=== PATIENT | female | born 1995 | race Caucasian/White ===

== ENCOUNTER 2018-08-21 23:11 | Observation (INO) | payer OTHER ==
[~2018-08-21] VITALS: Ht 167.6 cm; Wt 63.6 kg
[2018-08-21] MEDS ORDERED: EPINEPHrine 1 MG INJ IM STA (23:24)
[2018-08-21] MEDS ORDERED: METHYLPREDNISOLONE 125 MG INJ IV STA (23:24)
[2018-08-21] MEDS ORDERED: DIPHENHYDRAMINE 50 MG INJ IV STA (23:24)
[2018-08-21] MEDS ORDERED: FAMOTIDINE 20 MG INJ IV STA (23:24)
[2018-08-21] MEDS ORDERED: ALBUTEROL 0.083% (NEB) 2.5 MG/3 ML AMP INH STA (23:24)
[2018-08-22] MEDS ORDERED: RACEPINEPHRINE 2.25%(NEB) 0.5 ML AMP HHN ONE (02:00)
[2018-08-22] MEDS ORDERED: SOD CHLORIDE 0.9% 1,000 ML IV SCH (02:42)
--- NOTE | 2018-08-22 02:58 | ERD ---
ER Documentation Chief Complaint Chief Complaint ALLERGIC REACTION TO CASHEWS; USED EPIPEN 1 HR AGO. 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 The patient reportedly ate a wrap yesterday that had a cashew-based sauce that she was not aware of until after eating it. The patient broke out in hives and reports difficulty breathing and then sensation that her throat was going to close. She went to an emergency department yesterday where she received epinephrine, Benadryl, Pepcid and steroids. She was discharged with prescriptions for an EpiPen, Benadryl, Pepcid and prednisone. The patient reports compliance with her prescriptions. However, this evening the patient's symptoms started to recur. The patient endorses a sensation that her throat is closing and difficulty breathing. She reports dyspnea as well. The patient did not break out in hives this evening. The patient denies feeling sick recently. The patient denies fever or chills. The patient has had no headache or vision changes. The patient does not endorse neck or back pain. The patient denies lightheadedness or dizziness. The patient has had no chest pain. The patient denies nausea or vomiting. The patient denies abdominal pain. The patient denies changes to bowel movements or urination. The patient has had no focal deficits. The patient has had no w eakness or numbness or tingling to the face or extremities. ROS All systems reviewed and are negative except as per history of present illness. Allergies Allergies: Coded Allergies: latex (Verified Allergy, Unknown, 08/21/18) morphine (Verified Allergy, Unknown, 08/21/18) Uncoded Allergies: CASHEWS (Allergy, Intermediate, 08/22/18) PMhx/Soc Medical and Surgical Hx: pt denies Surgical Hx History of Surgery: No Anesthesia Reaction: No Hx Neurological Disorder: No Hx Respiratory Disorders: No Hx Cardiac Disorders: No Hx Psychiatric Problems: No Hx Miscellaneous Medical Probl: Yes (Interstitial cystitis) Hx Alcohol Use: No Hx Substance Use: No Hx Tobacco Use: No Smoking Status: Never smoker FmHx Family History: No diabetes Physical Exam Vitals Vital Signs Date Temp Pulse Resp B/P (MAP) Pulse Ox O2 O2 Flow FiO2 Time Delivery Rate 08/22/18 94 32 97 Nasal 2.0 02:03 Cannula 2/23/19 Simple 10.0 23:52 Mask 08/21/18 90 26 98 21 23:42 08/21/18 107 19 129/60 100 Room Air 23:30 (83) 08/21/18 98.4 88 18 149/70 100 23:13 (96) Physical Exam Const: No apparent distress, well-developed, well-nourished Head: Normocephalic, Atraumatic Eyes: Normal Conjunctiva. Extraocular movements intact. Pupils equal, round and reactive to light ENT: Normal External Ears, Nose and Mouth. Neck: Full range of motion. No meningismus. Resp: Clear to auscultation bilaterally, No wheezes, rales or rhonchi Cardio: Regular rate and rhythm. No murmurs, rubs or gallops Abd: Soft, non tender, non distended. Normal bowel sounds Skin: No petechiae or rashes Back: No midline tenderness. No CVA tenderness Ext: No cyanosis, or edema Neur: Awake and alert, oriented 4. Cranial nerves intact. No facial droop. Normal strength, sensation and coordination. Psych: Normal Mood and Affect Result Diagram: 08/22/18 0200 08/22/18 0200 Results 24 hrs Laboratory Tests Test 08/22/18 02:00 White Blood Count 10.3 10^3/ul Red Blood Count 3.80 10^6/ul Hemoglobin 11.9 g/dl Hematocrit 35.2 % Mean Corpuscular Volume 92.6 fl Mean Corpuscular Hemoglobin 31.3 pg Mean Corpuscular Hemoglobin Concent 33.8 g/dl Red Cell Distribution Width 12.5 % Platelet Count 252 10^3/UL Mean Platelet Volume 10.0 fl Immature Granulocytes % 0.500 % Neutrophils % 94.4 % Lymphocytes % 4.0 % Monocytes % 1.0 % Eosinophils % 0.0 % Basophils % 0.1 % Nucleated Red Blood Cells % 0.0 /100WBC Immature Granulocytes # 0.050 10^3/ul Neutrophils # 9.8 10^3/ul Lymphocytes # 0.4 10^3/ul Monocytes # 0.1 10^3/ul Eosinophils # 0.0 10^3/ul Basophils # 0.0 10^3/ul Nucleated Red Blood Cells # 0.0 10^3/ul Sodium Level 144 mmol/L Potassium Level 3.5 mmol/L Chloride Level 113 mmol/L Carbon Dioxide Level 17 mmol/L Anion Gap 14 Blood Urea Nitrogen 8 mg/dl Creatinine 0.61 mg/dl Est Glomerular Filtrat Rate mL/min > 60 mL/min Glucose Level 206 mg/dl Calcium Level 9.1 mg/dl Current Medications Medications Dose Sig/Trip Start Time Status Last (Trade) Ordered Route PRN Stop Time Admin Dose Reason Admin 50 mg ONCE STAT 08/21/18 DC 08/21/18 Diphenhydrami IV 23:24 23:40 ne HCl 08/21/18 23:26 (Benadryl) Epinephrine 0.3 mg ONCE STAT 08/21/18 DC 08/21/18 IM 23:24 23:29 (EPINEPHrine) 08/21/18 23:26 Famotidine 20 mg ONCE STAT 08/21/18 DC 08/21/18 (Pepcid Iv) IV 23:24 23:40 08/21/18 23:26 125 mg ONCE STAT 08/21/18 DC 08/21/18 Methylprednis IV 23:24 23:40 olone Sodium 08/21/18 23:26 Succinate (Solu-Medrol) Albuterol 5 mg ONCE STAT 08/21/18 DC 08/21/18 (Proventil INH 23:24 23:42 0.083% (Neb)) 08/21/18 23:26 Epinephrine 0.25 ml ONCE ONCE 08/22/18 DC 08/22/18 HHN 02:00 02:03 (Racepinephri 08/22/18 02:01 ne 2.25% (Neb)) Procedures/MDM MDM The patient's presentation warrants further investigation. Previous medical records, if available, were reviewed. LABS The patient's laboratory testing was obtained and reviewed. No emergent treatment was required unless described below. CBC: No E/o of systemic infection or thrombocytopenia. Mild normocytic anemia, not emergent. BMP: No E/o severe alkalosis or renal failure or diabetic ketoacidosis. There is a mild anion gap metabolic acidosis present, potentially related to the albuterol use. EKG EKG read by me: Rate/Rhythm: Regular rate and rhythm at a rate of 92 bpm Intervals: Normal [place]: Normal Impression: No evidence of acute ischemia or arrhythmia IMAGING Imaging and Radiology interpretation reviewed. CXR FINDINGS: The cardiomediastinal silhouette is normal. The aorta is normal. No focal consolidation, pleural effusion or pneumothorax is seen. The osseous structures are intact. IMPRESSION: No radiographic evidence of acute cardiopulmonary disease. Electronically viewed and signed by Mehreen Mccoy Physician on 08/22/2018 02:46 TREATMENT/DISPOSITION The patient presents with concerns of an allergic reaction. The patient's symptoms reportedly recurred despite treatment for her allergic reaction yesterday. The patient was treated again today, but the patient reports persistent shortness of breath. The patient's workup is unremarkable. The patient's physical exam is reassuring. That said, since the patient's symptoms have continued, I do feel that the patient would benefit from being observed in the hospital to make sure that the patient's allergic symptoms do not become emergent again. The patient was treated with epinephrine, Benadryl, Pepcid, Solu-Medrol, albuterol and racemic epinephrine. Other etiologies were considered. The patient's chest xray does not reveal pneumonia or pneumothorax or pleural effusions or pulmonary edema. She does not have a widened mediastinum and does not have signs or symptoms concerning for thoracic aortic aneurysm or dissection. The patient does not have pneumome diastinum or signs concerning for esophageal tear or rupture. The patient has no clinical or radiographic signs of pericardial effusion or tamponade. The patient does not have pneumoperitoneum and I have decreased suspicion of viscus perforation as possible referred pain. The patient does not have a history of heart failure and I have low suspicion for this. The patient does not have a diagnosis of COPD and is not wheezing today. The patient is not tachypneic or hypoxic. The patient is without pleuritic pain. The patient is not on hormonal therapy. The patient has no history of clotting or bleeding disorders. The patient has no calf tenderness. The patient has had no hemoptysis. I have dec reased suspicion for PE. The patient's EKG is reassuring. I have low suspicion for acute coronary syndrome. The patient did have a mild metabolic acidosis. This could be related to the albuterol use. The patient was given IV fluids in the hospital. At this time, I feel that the patient requires admission for further evaluation and management. The patient will be admitted to panel in accordance with the patient's insurance. The patient was accepted by Dr. Worthy at 2:37 AM on August 22, 2018. Disclaimer: Inadvertent spelling and grammatical errors are likely due to EHR/dictation software use and do not reflect on the overall quality of patient care. Note that the electronic time recorded on this note does not necessarily reflect the actual time of the patient encounter. Departure Diagnosis: Primary Impression: Allergic reaction Encounter type: subsequent encounter Qualified Codes: T78.40XD - Allergy, unspecified, subsequent encounter Additional Impressions: Shortness of breath Normocytic anemia Metabolic acidosis Condition: SANFORD Dickey MD Aug 22, 2018 02:55
[2018-08-22] MEDS ORDERED: NACL 0.9% 3 ML SYG IV SCH (03:00)
[2018-08-22] MEDS ORDERED: ALBUTEROL 0.083% (NEB) 2.5 MG/3 ML AMP HHN PRN (03:00)
[2018-08-22] MEDS ORDERED: ACETAMINOPHEN 325 MG TAB PO PRN ×2 (03:00)
[2018-08-22] MEDS ORDERED: DOCUSATE SODIUM 100 MG CAP PO PRN (03:00)
[2018-08-22] MEDS ORDERED: ONDANSETRON 4 MG INJ IV PRN ×2 (03:00)
[2018-08-22] MEDS ORDERED: DIPHENHYDRAMINE 50 MG INJ IV PRN (03:00)
[2018-08-22] MEDS ORDERED: BISACODYL (EC) 5 MG TAB PO PRN (03:00)
[2018-08-22 04:35] VITALS: Ht 167.6 cm; Wt 63.6 kg
[2018-08-22 05:19] VITALS: BP 111/60; RESP 20
[2018-08-22] MEDS ORDERED: METHYLPREDNISOLONE 40 MG INJ IV ONE (05:30)
[2018-08-22] MEDS ORDERED: LORAZEPAM 2 MG INJ IV ONE (05:30)
--- NOTE | 2018-08-22 05:50 | HP ---
Date/Time of Note Date/Time of Note DATE: 08/22/18 TIME: 05:42 Assessment/Plan VTE Prophylaxis SCD applied (from Nsg): Yes Pharmacological prophylaxis: NA/contraindicated Pharm contraindication: low risk/ambulating Lines/Catheters IV Catheter Type (from Nrsg): Peripheral IV Assessment/Plan Hospital Course This is a 23-year-old female being admitted to the [facility] floor for observation for: #1 allergic reaction: Patient at the current time does appear to be hyperventilating, she reports that she feels like her throat is closing however I do not appreciate any stridor on examination. There is no wheezing on examination. Her lungs appear to have good air movement. We will give her a treatment of racemic epi at the current time as well as an additional dose of steroids. I do feel that there may be a component of anxiety at the current time. We will also give her a dose of Ativan 0.5 IV x1. PRN Benadryl, H2 humberto. She does not have any wheals or any rashes or hives at the current time. #2 multiple allergies: Multiple allergies to cashews, fish containing products, latex, morphine, pistachio, sesame seed. Treat as per #1, monitor closely. Epinephrine prescription on discharge #3 metabolic acidosis: Etiology unknown secondary possibly to above. Patient also appears to be hyperventilating. Will continue to monitor closely. No signs of any fevers or infection at the current time. Will check urinalysis. We will also check an ABG. Will check urine drug screen as well as an ethanol level though patient denies any illicit drug use. #3 DVT GI prophylaxis: SCDs, H2 humberto Further treatment strategy will be implemented as per the clinical course. Result Diagram: 08/22/18 0200 08/22/18 0200 Results 24hrs Laboratory Tests Test 08/22/18 02:00 White Blood Count 10.3 Red Blood Count 3.80 L Hemoglobin 11.9 L Hematocrit 35.2 L Mean Corpuscular Volume 92.6 Mean Corpuscular Hemoglobin 31.3 Mean Corpuscular Hemoglobin Concent 33.8 Red Cell Distribution Width 12.5 Platelet Count 252 Mean Platelet Volume 10.0 Immature Granulocytes % 0.500 H Neutrophils % 94.4 H Lymphocytes % 4.0 L Monocytes % 1.0 Eosinophils % 0.0 Basophils % 0.1 Nucleated Red Blood Cells % 0.0 Immature Granulocytes # 0.050 H Neutrophils # 9.8 H Lymphocytes # 0.4 L Monocytes # 0.1 L Eosinophils # 0.0 Basophils # 0.0 Nucleated Red Blood Cells # 0.0 Sodium Level 144 Potassium Level 3.5 Chloride Level 113 H Carbon Dioxide Level 17 L Anion Gap 14 H Blood Urea Nitrogen 8 Creatinine 0.61 Est Glomerular Filtrat Rate mL/min > 60 Glucose Level 206 Calcium Level 9.1 HPI/ROS Admit Date/Time Admit Date/Time Aug 22, 2018 at 02:42 Hx of Present Illness Chief complaint: Allergic reaction to cashews 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 The patient reportedly ate a wrap yesterday that had a cashew-based sauce that she was not aware of until after eating it. The patient broke out in hives and reports difficulty breathing and then sensation that her throat was going to close. She went to an emergency department at [facility] yesterday where she received epinephrine, Be nadryl, Pepcid and steroids. She was discharged with prescriptions for an EpiPen, Benadryl, Pepcid and prednisone. The patient reports compliance with her prescriptions. However, this evening the patient's symptoms started to recur. The patient endorses a sensation that her throat is closing and difficulty breathing. She reports dyspnea as well. The patient did not break out in hives this evening. Upon arriving to the ER she did receive epinephrine, Benadryl, Solu-Medrol, Pepcid and nebulization treatment. Upon my examination of the patient at the bedside she did appear to be hyperventilating. On exam there was no stridor and her lungs appeared clear on auscultation. allergies: Cashews, fish containing products, stage or not, sesame seed Medications: See AUG ROS Const: As per HPI Eyes : No pain discharge or redness or change in visual acuity ENT: As per HPI Respiratory: As per HPI Cardiovascular: No chest pain, palpitation, PND, or edema GI : no change in appetite, abdominal pain, nausea, vomiting, diarrhea, constipation, or change in the color his stool Genitourinary: No dysuria, hematuria, flank pain , discharge or CVA tenderness Musculoskeletal: No joint pain, back pain, neck pain, restricted range of motion in neck or joints Skin: No rash, bruising or hives Neuro: No headache, dizziness, syncope, seizure, focal weakness Endocrine: No polyuria, polydipsia, temperature intolerance Psych: No hallucination, depression, anxiety or suicidal ideation PMH/Family/Social Past Medical History Multiple allergies resulting in anaphylaxis, interstitial cystitis Medications Current Medications Ondansetron HCl (Zofran Inj) 4 mg BRIDGE ORDER PRN IV NAUSEA/VOMITING; Start 08/22/18 at 03:00; Stop 08/23/18 at 02:59 Acetaminophen (Tylenol Tab) 650 mg ER BRIDGE PRN PO .MILD PAIN 1-3 OR TEMP; Start 08/22/18 at 03:00; Stop 08/23/18 at 02:59 Sodium Chloride 1,000 ml @ 100 mls/hr Q10H IV Last administered on 08/22/18at 05:04; Admin Dose 100 MLS/HR; Start 08/22/18 at 02:42; Stop 08/22/18 at 12:41 IV Flush (NS 3 ml) 3 ml PER PROTOCOL IV ; Start 08/22/18 at 03:00 Ondansetron HCl (Zofran Inj) 4 mg Q6H PRN IV NAUSEA/VOMITING; Start 08/22/18 at 03:00 Acetaminophen (Tylenol Tab) 650 mg Q6H PRN PO .PAIN 1-3 OR TEMP; Start 08/22/18 at 03:00 Docusate Sodium (Colace) 100 mg Q12H PRN PO .CONSTIPATION; Start 08/22/18 at 03:00 Bisacodyl (Dulcolax) 5 mg DAILY PRN PO .CONSTIPATION; Start 08/22/18 at 03:00 Famotidine (Pepcid Iv) 20 mg Q12 IV ; Start 08/22/18 at 09:00 Albuterol (Proventil 0.083% (Neb)) 2.5 mg Q4H RESP THERAPY PRN HHN SHORTNESS OF BREATH; Start 08/22/18 at 03:00 Diphenhydramine HCl (Benadryl) 50 mg Q6H PRN IV ALLERGIC REACTION; Start 08/22/18 at 03:00 Epinephrine (Racepinephrine 2.25% (Neb)) 0.25 ml Q3H RESP THERAPY PRN HHN STRIDOR; Start 08/22/18 at 03:00; Stop 08/23/18 at 02:59 Coded Allergies: Fish Containing Products (Verified Allergy, Severe, 08/22/18) Swelling of lips and throat pistachio nut (Verified Allergy, Severe, 08/22/18) Hives and throat swelling cashew nut (Unverified Allergy, Intermediate, 08/22/18) sesame seed (Verified Allergy, Mild, 08/22/18) Rash latex (Verified Allergy, Unknown, 08/21/18) morphine (Verified Allergy, Unknown, 08/21/18) Uncoded Allergies: CASHEWS (Allergy, Intermediate, 08/22/18) Past Surgical History Appendectomy Family History Significant Family History: no pertinent family hx Social History Alcohol Use: none Smoking Status: Never smoker Drug Use: none Exam/Review of Systems Vital Signs Vitals Vital Signs Date Temp Pulse Resp B/P (MAP) Pulse Ox O2 O2 Flow FiO2 Time Delivery Rate 08/22/18 98.4 20 111/60 99 05:19 (77) 08/22/18 Nasal 2.0 04:49 Cannula 08/22/18 88 03:54 08/21/18 21 23:42 Exam Exam General: The patient is currently sitting upright in bed she appears to be in respiratory distress, hyperventilating HEENT: Atraumatic, normocephalic. The pupils are equal, round and reactive. Extraocular motor are intact, no stridor Neck: Supple with full range of motion. No rigidity or meningismus Chest: Nontender Lungs: Mild to moderate respiratory distress, she appears to be h yperventilating, lungs are clear to auscultation and there is no stridor, no wheezing Heart: Normal S1-S2, Regular rhythm and rate. No murmur, S3, or S4 Abdomen: Soft , nontender, nondistended , bowel sounds are present. No guarding no rebound tenderness , No masses or organomegaly. No costovertebral temporal angle mass Extremities: Normal to inspection, no edema no cyanosis Neurologic: Normal mental status, speech normal, cranial nerves II through XII are intact, motor and sensory are intact, no focal weakness Skin: No hives or wheals or rash Additional Comments PROCEDURE: XR Chest. CLINICAL INDICATION: Shortness of breath TECHNIQUE: AP Portable chest. COMPARISON: No pertinent prior examinations were submitted for comparison. FINDINGS: The cardiomediastinal silhouette is normal. The aorta is normal. No focal consolidation, pleural effusion or pneumothorax is seen. The osseous structures are intact. IMPRESSION: No radiographic evidence of acute cardiopulmonary disease. [facility] Physician Trudy Date Time Electronically viewed and signed by Physician Trudy on 08/22/2018 02:46 CS/ CC: SANFORD STEWART MD [phone] EKG Rate/Rhythm: Regular rate and rhythm at a rate of 92 bpm Intervals: Normal [place]: Normal Impression: No evidence of acute ischemia or arrhythmia CARRIE LUNDBERG Aug 22, 2018 05:50
[2018-08-22] MEDS: RACEPINEPHRINE 2.25%(NEB) 0.5 ML AMP HHN PRN ×2 (06:11→15:41)
[2018-08-22 08:11] VITALS: BP 118/65; PULSE 90; RESP 18
[2018-08-22] MEDS ORDERED: FAMOTIDINE 20 MG INJ IV SCH (09:00)
[2018-08-22] MEDS ORDERED: IOHEXOL 350MG/ML 50 ML BTL ONE ×2 (11:38→12:15)
[2018-08-22] MEDS ORDERED: IOHEXOL 0 ML ONE (11:38)
[2018-08-22] MEDS ORDERED: SOD CHLORIDE 0.9% 100 ML ONE (11:38)
[2018-08-22] MEDS ORDERED: IOHEXOL 100 ML ONE (12:15)
[2018-08-22 14:52] VITALS: BP 115/71; PULSE 68; RESP 21
--- NOTE | 2018-08-22 15:11 | PN ---
Date/Time of Note Date/Time of Note DATE: 08/22/18 TIME: 15:06 Assessment/Plan VTE Prophylaxis Risk score (from Nsg)>0 risk: 1 SCD applied (from Nsg): Yes Pharmacological prophylaxis: NA/contraindicated Pharm contraindication: low risk/ambulating Lines/Catheters IV Catheter Type (from Nrsg): Peripheral IV Assessment/Plan Assessment/Plan This is a 23-year-old woman admitted after allergic reaction for persistent dyspnea. # allergic reaction: - Continues to have respiratory distress - CTPA negative, CT neck negative. - Continue ATC benadryl, pepcid, prednisone 60 daily - Inhaled racemic epinephrine prn. # multiple allergies: Multiple allergies to cashews, fish containing products, latex, morphine, pistachio, sesame seed. Treat as per #1, monitor closely. Ep inephrine prescription on discharge # metabolic acidosis: - ABG shows metabolic acidosis with apparently respiratory overcompensation. # DVT GI prophylaxis: SCDs, H2 humberto Result Diagram: 08/22/18 02008/22/18 0200 Subjective 24 Hr Interval Summary Free Text/Dictation Patient continues to have respiratory distress. She has mild stridor and reports feeling "a ball in my throat". While I was in the room she desatted to mid 80s and came back up spontaneously. Exam/Review of Systems Exam Vitals Vital Signs Date Temp Pulse Resp B/P (MAP) Pulse Ox O2 O2 Flow FiO2 Time Delivery Rate 08/22/18 98.1 68 21 115/71 18 14:52 (86) 08/22/18 2.0 14:41 08/22/18 Nasal 08:00 Cannula 08/21/18 21 23:42 Exam General: The patient is currently sitting upright in bed she appears to be in respiratory distress, hyperventilating HEENT: Atraumatic, normocephalic. The pupils are equal, round and reactive. Extraocular motor are intact Neck: Supple with full range of motion. No rigidity or meningismus Chest: Nontender Lungs: Mild to moderate respiratory distress, she appears to be hyperventilating, lungs are clear to auscultation and there is no stridor, no wheezing Heart: Normal S1-S2, Regular rhythm and rate. No murmur, S3, or S4 Abdomen: Soft , nontender, nondistended , bowel sounds are present. No guarding no rebound tenderness , No masses or organomegaly. No costovertebral temporal angle mass Extremities: Normal to inspection, no edema no cyanosis Skin: No hives or wheals or rash Results Results 24hrs Laboratory Tests Test 08/22/18 02:00 08/22/18 06:31 08/22/18 07:54 08/22/18 09:00 White Blood Count 10.3 Red Blood Count 3.80 L Hemoglobin 11.9 L Hematocrit 35.2 L Mean Corpuscular 92.6 Volume Mean Corpuscular 31.3 Hemoglobin Mean Corpuscular 33.8 Hemoglobin Concen t Red Cell 12.5 Distribution Width Platelet Count 252 Mean Platelet 10.0 Volume Immature 0.500 H Granulocytes % Neutrophils % 94.4 H Lymphocytes % 4.0 L Monocytes % 1.0 Eosinophils % 0.0 Basophils % 0.1 Nucleated Red 0.0 Blood Cells % Immature 0.050 H Granulocytes # Neutrophils # 9.8 H Lymphocytes # 0.4 L Monocytes # 0.1 L Eosinophils # 0.0 Basophils # 0.0 Nucleated Red 0.0 Blood Cells # Sodium Level 144 Potassium Level 3.5 Chloride Level 113 H Carbon Dioxide 17 L Level Anion Gap 14 H Blood Urea 8 Nitrogen Creatinine 0.61 Est Glomerular > 60 Filtrat Rate mL/min Glucose Level 206 Calcium Level 9.1 Ethyl Alcohol < 10.0 H Level Blood Gas Blood arterial Specimen Source Arterial Blood 08/22/2018 7:05:0 Date Drawn 9 AM Arterial Blood pH 7.560 *H (Temp corrected) Arterial Blood 19.8 L pCO2 (Temp correct) Arterial Blood 146.8 H pO2 (Temp corrected) Arterial Blood 17.3 L HCO3 Arterial Blood -2.7 Base Excess Arterial Blood 98.4 H Oxygen Saturation Dano Test ACCEPTAB Arterial Blood Right Radial Gas Puncture Site Arterial 0.3 Blood Carboxyhemo globin Arterial Blood 0.3 Methemoglobin Blood Gas A-a O2 22.3 Differential Oxyhemoglobin 97.8 Percent Blood Gas 37.0 Temperature Blood Gas NASAL CANNULA Modality FiO2 27.0 Blood Gas A ALIX LEBRON Critical Value Read Back Blood Gas DT Notified Whom Blood Gas 08/22/2018 7:16:5 Notified Time 2 AM D-Dimer 1576.90 H D-Dimer Comment Urine Color YELLOW Urine Clarity CLEAR Urine pH 8.0 Urine Specific 1.012 [place] Urine Ketones 2+ H Urine Nitrite NEGATIVE Urine Bilirubin NEGATIVE Urine NEGATIVE Urobilinogen Urine Leukocyte NEGATIVE Esterase Urine Microscopic 13 H RBC Urine Microscopic 1 WBC Urine Squamous FEW Epithelial Cells Urine Bacteria FEW A Urine Hemoglobin 2+ H Urine Glucose NEGATIVE Urine Total NEGATIVE Protein Urine NEGATIVE Test Urine Opiates Negative Screen Urine Negative Barbiturates Urine Negative Amphetamines Screen Urine Negative Benzodiazepines Screen Urine Cocaine Negative Screen Urine Negative Cannabinoids Medications Medication Current Medications Ondansetron HCl (Zofran Inj) 4 mg BRIDGE ORDER PRN IV NAUSEA/VOMITING; Start 08/22/18 at 03:00; Stop 08/23/18 at 02:59 Acetaminophen (Tylenol Tab) 650 mg ER BRIDGE PRN PO .MILD PAIN 1-3 OR TEMP; Start 08/22/18 at 03:00; Stop 08/23/18 at 02:59 IV Flush (NS 3 ml) 3 ml PER PROTOCOL IV ; Start 08/22/18 at 03:00 Ondansetron HCl (Zofran Inj) 4 mg Q6H PRN IV NAUSEA/VOMITING; Start 08/22/18 at 03:00 Acetaminophen (Tylenol Tab) 650 mg Q6H PRN PO .PAIN 1-3 OR TEMP; Start 08/22/18 at 03:00 Docusate Sodium (Colace) 100 mg Q12H PRN PO .CONSTIPATION; Start 08/22/18 at 03:00 Bisacodyl (Dulcolax) 5 mg DAILY PRN PO .CONSTIPATION; Start 08/22/18 at 03:00 Famotidine (Pepcid Iv) 20 mg Q12 IV Last administered on 08/22/18at 08:50; Admin Dose 20 MG; Start 08/22/18 at 09:00 Albuterol (Proventil 0.083% (Neb)) 2.5 mg Q4H RESP THERAPY PRN HHN SHORTNESS OF BREATH; Start 08/22/18 at 03:00 Diphenhydramine HCl (Benadryl) 50 mg Q6H PRN IV ALLERGIC REACTION Last administered on 08/22/18at 14:23; Admin Dose 50 MG; Start 08/22/18 at 03:00 Epinephrine (Racepinephrine 2.25% (Neb)) 0.25 ml Q3H RESP THERAPY PRN HHN STRIDOR Last administered on 08/22/18at 06:11; Admin Dose 0.25 ML; Start 08/22/18 at 03:00; Stop 08/23/18 at 02:59 BEATA HUNTER MD Aug 22, 2018 15:11
[2018-08-22] MEDS ORDERED: DIPHENHYDRAMINE 50 MG CAP PO SCH (15:30)
[2018-08-23] MEDS ORDERED: predniSONE 20 MG TAB PO SCH (09:00)
== END 2018-08-22 17:15 | disposition left against medical advice (07) ==
LOC: E/R 23:11 → PP2 08-22 02:42
PROVIDERS: ADMIT Family Medicine; ATTEND Internal Medicine
DX: T78.1XXA Other adverse food reactions, not elsewhere classified, initial encounter (principal); E87.2 Acidosis; R06.02 Shortness of breath; X58.XXXA Exposure to other specified factors, initial encounter
CPT/HCPCS: 36600; 70490; 71045; 71275; 80048; 80307; 81001; 82803; 84703; 85025; 85378; 94640; 94664; G0378; J1200; J2060; J2920; J2930; J7030; Q9967; 93005

== ENCOUNTER 2018-08-25 13:00 | Emergency (ER) | payer OTHER ==
[~2018-08-25] VITALS: Wt 63.6 kg
[2018-08-25] MEDS ORDERED: SOD CHLORIDE 0.9% 1,000 ML IV STA (13:34)
[2018-08-25] MEDS ORDERED: DIPHENHYDRAMINE 50 MG INJ IV STA (13:34)
[2018-08-25] MEDS ORDERED: BEN25 PO (13:58)
[2018-08-25] MEDS ORDERED: FAMO20TA18 PO (13:59)
[2018-08-25] MEDS ORDERED: RACEPINEPHRINE 2.25%(NEB) 0.5 ML AMP HHN ONE (14:00)
[2018-08-25] MEDS ORDERED: DEXAMETHASONE 10 MG/ML 1 ML INJ IV ONE (14:00)
[2018-08-25 15:23] VITALS: BP 106/64; PULSE 79; RESP 18
--- NOTE | 2018-08-25 15:56 | ERD ---
ER Documentation Chief Complaint Chief Complaint anaphalactic reaction, left ama on thursday, resp distress, airway tightning HPI This is a 23-year-old female with a history of peanut allergies who presents to the emergency room for evaluation of shortness of breath. History is obtained from the patient and the patient's mother who states that on August 20 this patient accidentally ingested a cashew and started to feel short of breath. She did have an EpiPen and did give herself an EpiPen injection and was seen at an outside facility at [place]. At that time the patient was evaluated and she had no signs of anaphylaxis and she was discharged home with a prescription for an EpiPen, Benadryl, and steroids. The patient then returned to the hospital again for evaluation of shortness of breath and was admitted to the hospital. Over this patient did sign out AGAINST MEDICAL ADVICE because she was feeling anxious. The patient did have a CT of the neck and CT of the chest at that time which were normal. She presents today again for evaluation of some shortness of breath. The patient states that she gave herself epinephrine last night at approximately 10 PM. ROS All systems reviewed and are negative except as per history of present illness. Medications Home Meds Reported Medications Famotidine* (Famotidine*) 20 Mg Tablet, 20 MG PO DAILY, #30 TAB 08/25/18 Diphenhydramine Hcl* (Benadryl*) 25 Mg Cap, 25 MG PO QHS PRN for ALLERGIC REACTION, CAP 08/25/18 Allergies Allergies: Coded Allergies: Fish Containing Products (Verified Allergy, Severe, 08/22/18) Swelling of lips and throat pistachio nut (Verified Allergy, Severe, 08/22/18) Hives and throat swelling cashew nut (Unverified Allergy, Intermediate, 08/22/18) sesame seed (Verified Allergy, Mild, 08/22/18) Rash latex (Verified Allergy, Unknown, 08/21/18) morphine (Verified Allergy, Unknown, 08/21/18) Uncoded Allergies: CASHEWS (Allergy, Intermediate, 08/22/18) PMhx/Soc History of Surgery: Yes (remove endometriosis x2, appedectomy ) Anesthesia Reaction: No Hx Neurological Disorder: No Hx Respiratory Disorders: No Hx Cardiac Disorders: No Hx Psychiatric Problems: No Hx Miscellaneous Medical Probl: No Hx Alcohol Use: No Hx Substance Use: No Hx Tobacco Use: No Smoking Status: Never smoker Physical Exam Vitals Vital Signs Date Temp Pulse Resp B/P (MAP) Pulse Ox O2 O2 Flow FiO2 Time Delivery Rate 08/25/18 79 18 106/64 100 Room Air 15:23 (78) 08/25/18 94 20 99 21 13:50 08/25/18 97.8 133 24 122/79 100 13:01 (93) Physical Exam Const: Anxious appearing, tolerating secretions, not posturing Head: Atraumatic Eyes: Normal Conjunctiva ENT: No pharyngeal edema, normal External Ears, Nose and Mouth. Neck: Full range of motion. No meningismus. Resp: Clear to auscultation bilaterally Cardio: Regular rate and rhythm, no murmurs Abd: Soft, non tender, non distended. Normal bowel sounds Skin: No petechiae or rashes Back: No midline or flank tenderness Ext: No cyanosis, or edema Neur: Awake and alert Psych: Anxious affect Results 24 hrs Current Medications Medications Dose Sig/Trip Start Time Status Last (Trade) Ordered Route PRN Stop Time Admin Dose Reason Admin 25 mg ONCE STAT 08/25/18 DC 08/25/18 Diphenhydrami IV 13:34 13:43 ne HCl 08/25/18 13:36 (Benadryl) 10 mg ONCE ONCE 08/25/18 DC 08/25/18 Dexamethasone IV 14:00 13:43 (Decadron) 08/25/18 14:01 Epinephrine 0.5 ml ONCE ONCE 08/25/18 DC 08/25/18 HHN 14:00 13:50 (Racepinephri 08/25/18 14:01 ne 2.25% (Neb)) Sodium 1,000 ml @ Q1H STAT 08/25/18 DC 08/25/18 Chloride 1,000 mls/hr IV 13:34 13:43 08/25/18 14:33 Departure Diagnosis: Primary Impression: Allergic reaction Condition: Stable Patient Instructions: Allergic Reaction, Drug Referrals: [facility] YOU HAVE RECEIVED A MEDICAL SCREENING EXAM AND THE RESULTS INDICATE THAT YOU DO NOT HAVE A CONDITION THAT REQUIRES URGENT TREATMENT IN THE EMERGENCY DEPARTMENT. FURTHER EVALUATION AND TREATMENT OF YOUR CONDITION CAN WAIT UNTIL YOU ARE SEEN IN YOUR DOCTORS OFFICE WITHIN THE NEXT 1-2 DAYS. IT IS YOUR RESPONSIBILITY TO MAKE AN APPOINTMENT FOR FOLOW-UP CARE. IF YOU HAVE A PRIMARY DOCTOR --you should call your primary doctor and schedule an appointment IF YOU DO NOT HAVE A PRIMARY DOCTOR YOU CAN CALL OUR PHYSICIAN REFERRAL HOTLINE AT IF YOU CAN NOT AFFORD TO SEE A PHYSICIAN YOU CAN CHOSE FROM THE FOLLOWING [facility] [address] [facility] [address] [facility] [address] [facility] [address] [facility] [facility] [address] [facility]. [facility]. [address] Additional Instructions: Call your primary care doctor TOMORROW for an appointment during the next 1-2 days.See the doctor sooner or return here if your condition worsens before your appointment time. CAROL CASTILLO DO Aug 25, 2018 15:56
== END 2018-08-25 16:22 | disposition home or self-care (01) ==
LOC: E/R 13:00
DX: R06.02 Shortness of breath (principal); Z91.040 Latex allergy status
CPT/HCPCS: 94664; 96374; 96375; 99284; J1100; J1200; J7030